=== PATIENT | female | born 1980 | race Caucasian/White ===

== ENCOUNTER 2020-10-03 05:41 | Inpatient (IN) | payer OTHER ==
[~2020-10-03] VITALS: Ht 165.1 cm; Wt 73.0 kg
[2020-10-03] MEDS ORDERED: SODIUM CITRATE/CITRIC ACID 30 ML UDC PO ONE (06:00)
[2020-10-03] MEDS ORDERED: LACTATED RINGERS 1,000 ML IV SCH (06:00)
[2020-10-03] MEDS ORDERED: SODIUM CITRATE/CITRIC ACID 15 ML UDC ONE (06:06)
[2020-10-03] MEDS ORDERED: METOCLOPRAMIDE 5 MG/ML, 2ML ONE (06:06)
[2020-10-03 06:18] LABS: BASOPHILS % (AUTO) 1 % (0-1); EOSINOPHILS % (AUTO) 1 % (1-7); LYMPHOCYTES % (AUTO) 23 % (22-44); MEAN CORPUSCULAR HEMOGLOBIN 30.9 pg (27.0-34.8); MEAN CORPUSCULAR HGB CONC 34.5 g/dL (32.4-35.8); MONOCYTES % (AUTO) 4 % (2-9); NEUTROPHILS % (AUTO) 71 % (42-75); PLATELET COUNT 321 x10^3/uL (130-400); RED BLOOD COUNT 4.43 x10^6/uL (3.82-5.3); RED CELL DISTRIBUTION WIDTH 12.3 % (9.6-15.2)
[2020-10-03 06:20] LABS: MD NO
[2020-10-03] MEDS ORDERED: METOCLOPRAMIDE 5 MG/ML, 2ML IVPush ONE (06:30)
[2020-10-03] MEDS ORDERED: SODIUM CHLORIDE FLUSH 0.9%, 20 ML ONE (08:32)
[2020-10-03] MEDS ORDERED: CEFAZOLIN 1,000 MG ONE (08:32)
[2020-10-03] MEDS ORDERED: ACETAMINOPHEN 325 MG TABLET PO PRN (10:00)
[2020-10-03] MEDS ORDERED: ACETAMINOPHEN 325 MG TABLET ONE ×2 (11:29→11:30)
[2020-10-03] MEDS ORDERED: OXYcodone/APAP 5/325MG TABLET ONE (11:29)
[2020-10-03] MEDS ORDERED: OXYcodone/APAP 5/325MG TABLET PO ONE (11:30)
== END 2020-10-03 14:23 | disposition home or self-care (01) | DRG 819 ==
LOC: LDOP 05:41 → LDIP 05:44 → OBSVTOIN 05:46
PROVIDERS: ADMIT Obstetrics & Gynecology Maternal & Fetal Medicine; ATTEND Obstetrics & Gynecology Maternal & Fetal Medicine
PROC: 0UVC7ZZ Restriction of Cervix, Via Natural or Artificial Opening (ICD-10-PCS; principal; 2020-10-03)
DX: O34.32 Maternal care for cervical incompetence, second trimester (principal); J45.909 Unspecified asthma, uncomplicated; O99.512 Diseases of the respiratory system complicating pregnancy, second trimester; Z20.822 Contact with and (suspected) exposure to COVID-19; Z3A.14 14 weeks gestation of pregnancy
CPT/HCPCS: 36415; 85025; 87635; G0378; J0690; J7120

== ENCOUNTER 2020-12-31 09:05 | Outpatient (CLI) | payer OTHER ==
[~2020-12-31] VITALS: Ht 165.1 cm; Wt 77.3 kg
[2020-12-31 09:33] LABS: MICROSCOPIC INDICATED
[2020-12-31 09:47] LABS: BASOPHILS % (AUTO) 1 % (0-1); EOSINOPHILS % (AUTO) 1 % (1-7); LYMPHOCYTES % (AUTO) 14 % (22-44); MEAN CORPUSCULAR HEMOGLOBIN 30.6 pg (27.0-34.8); MEAN CORPUSCULAR HGB CONC 33.6 g/dL (32.4-35.8); MEAN PLATELET VOLUME 7.5 fL (7.4-10.4); MONOCYTES % (AUTO) 4 % (2-9); NEUTROPHILS % (AUTO) 81 % (42-75); PLATELET COUNT 297 x10^3/uL (130-400); RED BLOOD COUNT 3.82 x10^6/uL (3.82-5.3); RED CELL DISTRIBUTION WIDTH 13.8 % (9.6-15.2)
[2020-12-31 09:49] LABS: MD NO
[2020-12-31 10:03] LABS: ALANINE AMINOTRANSFERASE 13 U/L (12-78); ANION GAP 6 mmol/L (5-15); CHLORIDE 108 mmol/L (98-107); CREATININE 0.51 mg/dL (0.55-1.02)
[2020-12-31 10:04] LABS: ALBUMIN 2.6 g/dL (3.4-5.0)
[2020-12-31 10:06] LABS: ALKALINE PHOSPHATASE 41 U/L (45-117); BILIRUBIN,TOTAL 0.2 mg/dL (0.2-1.0); TOTAL PROTEIN 6.1 g/dL (6.4-8.2)
== END 2020-12-31 10:39 | disposition home or self-care (01) ==
LOC: LDOP 09:05
PROVIDERS: ATTEND Obstetrics & Gynecology
DX: O09.92 Supervision of high risk pregnancy, unspecified, second trimester (principal); O26.892 Other specified pregnancy related conditions, second trimester; R42 Dizziness and giddiness; Z3A.26 26 weeks gestation of pregnancy
CPT/HCPCS: 36415; 80053; 81001; 82570; 84156; 85025; 87086; 93005; 99211; G0463

== ENCOUNTER 2021-04-03 16:05 | Inpatient (IN) | payer OTHER ==
[~2021-04-03] VITALS: Ht 165.1 cm; Wt 81.8 kg
[2021-04-03] MEDS ORDERED: OXYTOCIN 30U/ 0.9% NaCL 500ML 500 ML ONE (16:17)
[2021-04-03] MEDS ORDERED: NEWBORN KIT ONE ×2 (16:22→16:48)
[2021-04-03] MEDS ORDERED: TERBUTALINE 1 MG/ML, 1ML SQ PRN (16:30)
[2021-04-03] MEDS ORDERED: D5%-LACTATED RINGERS 1,000 ML IV SCH (16:30)
[2021-04-03] MEDS ORDERED: FENTANYL PF 100 MCG/2ML IVPush PRN (16:30)
[2021-04-03] MEDS ORDERED: OXYTOCIN 30U/ 0.9% NaCL 500ML 500 ML IV ONE (16:30)
[2021-04-03] MEDS ORDERED: TERBUTALINE 1 MG/ML, 1ML IVPush PRN (16:30)
[2021-04-03] MEDS ORDERED: ONDANSETRON 2MG/ML, 2ML IVPush PRN (16:30)
[2021-04-03] MEDS ORDERED: CALCIUM CARBONATE 500 MG TAB.CHEW PO PRN (16:30)
[2021-04-03] MEDS ORDERED: LACTATED RINGERS 1,000 ML IV SCH ×2 (16:30→17:30)
[2021-04-03] MEDS ORDERED: MISOPROSTOL 200 MCG TABLET ONE (16:49)
[2021-04-03] MEDS ORDERED: LIDOCAINE 1%, 20ML ONE (16:49)
[2021-04-03 17:07] LABS: MEAN CORPUSCULAR HGB CONC 33.6 g/dL (32.4-35.8); PLATELET COUNT 311 x10^3/uL (130-400); RED BLOOD COUNT 4.57 x10^6/uL (3.82-5.3); RED CELL DISTRIBUTION WIDTH 14.3 % (9.6-15.2)
[2021-04-03 17:20] LABS: BAND#(MANUAL) 0.28 x10^3/uL; BANDS%(MANUAL) 2 % (0-7); LYMPH#(MANUAL) 2.09 x10^3/uL (1-3.4); LYMPHS% (MANUAL) 15 % (22-44); MONOS#(MANUAL) 0.14 x10^3/uL (0.3-2.7); MONOS% (MANUAL) 1 % (2-9); SEGS% (MANUAL) 82 % (42-75)
[2021-04-03 17:21] LABS: <PLATELET ESTIMATE> ADEQUATE; <PLT MORPHOLOGY> NORMAL PLT MORPH; <RBC MORPHOLOGY> NORMAL
[2021-04-03] MEDS ORDERED: EPHEDRINE 50 MG/ML, 1ML IVPush PRN (17:30)
[2021-04-03] MEDS ORDERED: LACTATED RINGERS 1,000 ML IVBOLUS PRN (17:30)
[2021-04-03] MEDS ORDERED: FENTANYL/BUPIV./NS/PF 250 ML EPIDCONT SCH (17:30)
[2021-04-03] MEDS ORDERED: NALOXONE 0.4 MG/ML, 1ML IVPush PRN (17:30)
[2021-04-03] MEDS ORDERED: HYDROcodone/APAP 5/325 TABLET ONE (17:53)
[2021-04-03] MEDS ORDERED: HYDROcodone/APAP 5/325 TABLET PO PRN (18:00)
[2021-04-03] MEDS ORDERED: RHOGAM FROM BLOOD BANK 1 NOTE EA IM/IV ONE (18:00)
[2021-04-03] MEDS: OXYTOCIN 30U/ 0.9% NaCL 500ML 500 ML IV SCH (18:00)
[2021-04-03] MEDS ORDERED: SIMETHICONE 80 MG CHEW TAB PO PRN (18:00)
[2021-04-03] MEDS ORDERED: MISOPROSTOL 200 MCG TABLET PR PRN (18:00)
[2021-04-03 20:45] VITALS: BP 117/78
[2021-04-04] VITALS: BP 122/78
[2021-04-04 01:42] LABS: BASOPHILS % (AUTO) 1 % (0-1); EOSINOPHILS % (AUTO) 0 % (1-7); LYMPHOCYTES % (AUTO) 11 % (22-44); MEAN CORPUSCULAR HEMOGLOBIN 29.7 pg (27.0-34.8); MEAN CORPUSCULAR HGB CONC 33.6 g/dL (32.4-35.8); MEAN PLATELET VOLUME 8.1 fL (7.4-10.4); MONOCYTES % (AUTO) 4 % (2-9); NEUTROPHILS % (AUTO) 84 % (42-75); PLATELET COUNT 288 x10^3/uL (130-400); RED BLOOD COUNT 3.84 x10^6/uL (3.82-5.3); RED CELL DISTRIBUTION WIDTH 14.1 % (9.6-15.2)
[2021-04-04] MEDS: OXYTOCIN 30U/ 0.9% NaCL 500ML 500 ML IV SCH (02:38)
[2021-04-04] MEDS: IBUPROFEN 600 MG TABLET PO PRN ×4 (03:21→21:46)
[2021-04-04 04:15] VITALS: BP 100/60
[2021-04-04 07:40] VITALS: BP 111/73
[2021-04-04] MEDS: PRENATAL VIT/IRON/FA 1 EACH TABLET PO SCH (10:04)
[2021-04-04] MEDS: DOCUSATE 100 MG CAPSULE PO PRN ×2 (10:04→21:47)
[2021-04-04 20:03] VITALS: BP 121/79
[2021-04-05] MEDS: IBUPROFEN 600 MG TABLET PO PRN ×2 (03:37→09:32)
[2021-04-05 08:10] VITALS: BP 102/63
[2021-04-05] MEDS: PRENATAL VIT/IRON/FA 1 EACH TABLET PO SCH (09:00)
[2021-04-05] MEDS: DOCUSATE 100 MG CAPSULE PO PRN (09:31)
== END 2021-04-05 11:30 | disposition home or self-care (01) | DRG 807 ==
LOC: LDOP 16:05 → LDIP 16:18 → 2NW 20:26
PROVIDERS: ADMIT Obstetrics & Gynecology; ATTEND Obstetrics & Gynecology
PROC: 10E0XZZ Delivery of Products of Conception, External Approach (ICD-10-PCS; principal; 2021-04-03)
PROC: 0KQM0ZZ Repair Perineum Muscle, Open Approach (ICD-10-PCS; 2021-04-03)
DX: O70.1 Second degree perineal laceration during delivery (principal); Z37.0 Single live birth; Z20.822 Contact with and (suspected) exposure to COVID-19; Z3A.39 39 weeks gestation of pregnancy; O71.82 Other specified trauma to perineum and vulva; Z88.0 Allergy status to penicillin
CPT/HCPCS: 36415; 85025; 86592; 86850; 86870; 86900; 86922; 86923; 87635; G0378